=== PATIENT | male | born 1950 | race Caucasian/White ===

== ENCOUNTER 2017-01-31 13:10 | Day surgery (SDC) | payer MEDICARE, OTHER ==
[~2017-01-31] VITALS: Ht 172.7 cm; Wt 79.4 kg
[~2017-01-31 13:10] MED LIST: AMLO10TA3 PO; CHOL200047 PO; GLUC100016 PO; HYDR50TA3 PO; LISI40TA PO; Sodium Chloride LOK Flush 10 mL Syringe IV PRN; fentaNYL-PF 50 mCg/mL 2 mL Inj IVPUSH PRN
[2017-01-31 13:54] VITALS: BP 152/94; PULSE 62; RESP 15; O2SAT 98
[2017-01-31] MEDS: 0.9% Sodium Chloride 1,000 ML IV PRN ×2 (14:07→15:02)
--- NOTE | 2017-01-31 15:24 | PCM.ENDCOL ---
Colonoscopy Date of Service: Jan 31, 2017 Physician Nicholas Ruiz MD Pre Procedure Diagnosis: Screening history of polyp Post Procedure Dx & Findings: Polyp hemorrhoids diverticula Procedure Colonoscopy PROCEDURE IN DETAIL: Prep adequate Withdrawal time 23 minutes After unremarkable rectal examination the Olympus video colonoscope was inserted patient's anal canal and was advanced to cecum. Landmarks were identified including the ileocecal valve and appendiceal orifice. Scope advanced to the terminal ileum. Terminal ileum revealed normal villous structures without any ulcer mass or erosions. I advanced about 8 cm. Scope was withdrawn systematically. Visualized colonic mucosa showed healthy shiny mucosa with normal healthy-appearing vasculature. In the cecum there were 2 polyps. One polyp was about 3-4 mm in size. This was resected completely using cold snare. The other polyp was about 5 mm in size which was resected completely using cold snare. In the cecum, there was a suture. It is probably where he had the partial colon resection. In the ascending colon, there was a one linear polyp. It was 1 cm long in 2-3 mm wide. This was resected using cold snare. Also in the ascending colon there were 2 more polyps. These were 3-4 mm in size which were resected completely using cold snare. In the transverse colon there were 3 polyps. These were about 2-4 mm in size. There were resected using cold snare. In the sigmoid colon there are several small diverticuli. In the rectum retroflexion was done which showed hemorrhoids. Anal canal was inspected carefully on the way out and hemorrhoids noted. Impression Polyp 7 status post complete removal Redundant tortuous colon Diverticuli Hemorrhoids Request modifier 22 for prolonged procedure. Recommendation Repeat colonoscopy 3 years Diverticular diet Presedation Assessment Risks and Benefits Informed consent was obtained from the patient after all risks and benefits including but not limited to drug reaction, infection, pain, bleeding, perforation, as well as alternatives were discussed. Patient monitoring Continuous pulse oximetry, cardiac monitoring, blood pressure monitoring, IV access, and oxygen at 2L per nasal cannula. Periprocedural Fentanyl: Fentanyl 175mcg Incrementally Midazolam: Midazolam 7mg Incrementally Complications There were no periprocedural complications identified. Post Procedure Plan Post Procedure Recommendations 1. Restrict activities today. 2. Resume normal activities in the morning. 3. Resume medications. 4. Patient informed of normal post procedure side effects as bloating, drowsiness, blood streaking in the stool. 5. average risk CRCS. If colon polyps come back as: -Hyperplastic- can repeat colonoscopy in 10 years -Tubular adenoma- repeat colonoscopy in 5 years -Tubulovillous/villous adenoma- repeat colonoscopy in 3 years -If any dysplasia- return to clinic as soon as possible 6. Please don't hesitate to call me with any questions. Nicholas Ruiz MD Jan 31, 2017 15:24
[2017-01-31 15:25] VITALS: BP 136/81; PULSE 77; RESP 14; O2SAT 98
[2017-01-31 15:38] VITALS: BP 140/82; PULSE 72; RESP 14; O2SAT 98
--- NOTE | 2017-02-02 19:47 | PATH ---
SURGICAL PATHOLOGY Attending Physician:Nicholas Ruiz M.D. CASE STATUS: Signed Out PATIENT NAME: JR MO PID: [id number] : 1950 DATE COLLECTED:01/31/2017 00:00 SPECIMEN: 1: Colon, Biopsy 2: Colon, Biopsy 3: Colon, Biopsy CLINICAL HISTORY: 1). CECAL POLYP 2). ASCENDING COLON POLYP 3). TRANSVERSE COLON POLYP FINAL DIAGNOSIS: 1. Cecum, Polyp, Biopsy: Multiple portions of tubular adenoma (approximately six); negative for high-grade dysplasia. Superficial portions of colorectal mucosa x4 with no significant histomorphologic abnormality. 2. Ascending Colon, Polyp, Biopsy: Portions of tubular adenoma x 2; negative for high-grade dysplasia. 3. Transverse Colon, Polyp, Biopsy: Portions of tubular adenoma x5. Negative for high-grade dysplasia. ICD10: K63.5 GROSS DESCRIPTION: The specimen is received in three formalin filled containers labeled with the patient's name. 1). The specimen is sublabeled "cecal polyp" and consists of multiple portions of tissue which aggregate to 0.5 x 0.5 x 0.2 CM. The specimen is entirely submitted in cassette 1A. 2). The specimen is sublabeled "ascending colon polyp" and consists of 2 portions of tissue which aggregate to 0.3 x 0.3 x 0.3 CM. The specimen is entirely submitted in cassette 2A. 3). The specimen is sublabeled "transverse colon polyp" and consists of 5 portions of tissue which aggregate to 0.4 x 0.4 x 0.2 CM. The specimen is entirely submitted in cassette 3A. 02/01/2017 [facility] ICD-9 CODES: CPT CODES: 1: 12278 2: 69620 3: 46712 Electronically Signed Out Carmel Tai MD [facility], [place] [address] Technical component performed at [facility], [facility] [address], [place], [address]
== END 2017-01-31 23:59 | disposition home or self-care (01) ==
LOC: END 13:10
PROVIDERS: ATTEND Internal Medicine
DX: Z12.11 Encounter for screening for malignant neoplasm of colon (principal); Z86.010 Personal history of colon polyps; D12.0 Benign neoplasm of cecum; D12.2 Benign neoplasm of ascending colon; D12.3 Benign neoplasm of transverse colon; K57.30 Diverticulosis of large intestine without perforation or abscess without bleeding; K64.9 Unspecified hemorrhoids; I10 Essential (primary) hypertension; E78.5 Hyperlipidemia, unspecified; L57.0 Actinic keratosis; F10.20 Alcohol dependence, uncomplicated; Z85.828 Personal history of other malignant neoplasm of skin
CPT/HCPCS: 45385; 88305; 99152; 99153; J7030